=== PATIENT | female | born 1950 ===

== ENCOUNTER 2022-02-19 06:32 | Day surgery (SDC) | payer BC, SELFPAY ==
[2022-02-19] MEDS: Tropicam./Phenyleph. (1/2.5%) 5 ML BTL ×3 (06:52→07:07)
[2022-02-19 06:59] VITALS: BP 116/78; PULSE 56; RESP 16; TEMP 36.2; O2SAT 100
--- NOTE | 2022-02-19 07:10 | ANES.PREOP_ITS ---
General Info Date of Service Date Performed: 02/19/22 Height: 5 ft 2 in Weight: 52.4 kg Body Mass Index (BMI): 21.1 Surgical Procedure: Operation Date: 02/19/22 07:40 Proposed Procedure Side Surgeon p Cataract Extraction with IOL Implant Left Zachary Bynum MD Meds Allergies and Home Medications Allergies Allergy/AdvReac Type Severity Reaction Status Date / Time mold Allergy Unknown Verified 02/19/22 06:54 dexamethasone [From Maxitrol] AdvReac Severe Other (See Unverified 02/19/22 07:04 Comment) neomycin [From Maxitrol] AdvReac Severe Other (See Unverified 02/19/22 07:04 Comment) polymyxin B [From Maxitrol] AdvReac Severe Other (See Unverified 02/19/22 07:04 Comment) Home Medication Medication Instructions Recorded cholecalciferol (vitamin D3) 25 See Rx Instructions .Route .COMPLEX 02/16/22 mcg (1,000 unit) capsule (Vitamin D3) multivitamin 1 tab PO DAILY 02/16/22 [facility] Medical History Medical History Bone mass Cataract Tinnitus Unspecified dacryocystitis of bilateral lacrimal passages Surgical History Surgical History History of bunionectomy of both great toes History of colonoscopy History of hernia repair Tobacco Smoking/Tobacco Use Status: Never Alcohol Alcohol Intake: current Alcohol intake frequency: 3 or more drinks per day Alcohol type: wine Substance Use Substance use type: does not use Vital Signs and Lab Results Vital Signs Most Recent Vital Signs in EMR: Most Recent Vital Signs Temp Pulse Resp BP Pulse Ox 36.2 C L 56 L 16 116/78 100 02/19/22 06:59 02/19/22 06:59 02/19/22 06:59 02/19/22 06:59 02/19/22 06:59 Lab Results Blood Type / Crossmatch: No Data to Display Complete Blood Count: No Data to Display Complete Metabolic Panel: No Data to Display Liver Function Panel: No Data to Display Coagulation Panel: No Data to Display Cardiac Panel: No Data to Display Arterial Blood Gas: No Data to Display Venous Blood Gas: No Data to Display Pancreas Panel: No Data to Display Thyroid Panel: No Data to Display Infectious Disease: No Data to Display Blood Cultures: No Data to Display Toxicology Panel: No Data to Display Anesthesia Assessment and Plan Anesthesia History Personal History: No History of Anesthesia Complications Family History: No Family History of Anesthesia Complications Exercise Tolerance Exercise Tolerance: Metabolic Equivalents>4 Pertinent Negatives Pertinent Negatives: No Symptoms of GERD, No Major Cardiovascular Symptoms or Complaints, No Major Pulmonary Symptoms or Complaints and No History of CVA/TIA Cardiac & Pulmonary Exam Cardiac Exam: Normal S1/S2 Heart Sounds Pulmonary Exam: Clear Bilateral Breath Sounds Implantable Cardiac Device Does patient have a Pacemaker or an ICD?: No Airway Exam Known Difficult Airway: No Mallampati Class: 1 Mouth Opening: Normal (> 3cm) Thyromental Distance: Greater than 3 cm Neck Range of Motion: Full ROM Neck Circumference: Normal Teeth Condition: Normal Dentition ASA Classification ASA Score: ASA 2 Emergency Case?: No NPO Status NPO Status: NPO Clears >2 hours, Solids >8 hours Anesthesia Plan Resuscitation Status: Full Code Anesthesia Technique: MAC Anesthesia Airway Planned: Natural Airway Monitors Used: Standard Monitors
[2022-02-19 07:16] VITALS: BMI 21.1
[2022-02-19] MEDS: Povidone-Iodine Ophth 30 ML BTL (07:34)
[2022-02-19] MEDS: Lidocaine 2% Jelly 6 ML SYR (07:47)
[2022-02-19] MEDS: Balanced Salt Soln.-PLUS 500 ML BAG (07:47)
[2022-02-19] MEDS: Duovisc Viscoelastic System EACH 1 EACH (07:48)
[2022-02-19] MEDS: Tetracaine 0.5% 4 ML BTL (07:50)
--- NOTE | 2022-02-19 08:06 | W.PM.DSUDISC ---
Discharge Plan Disposition Patient Disposition: HOME Condition: Good Discharge Details Attending Provider: Zachary Bynum Primary Care Provider: Hollie Antonio Home Meds and New Rx's Prescriptions: No Action multivitamin Tablet 1 tab PO DAILY cholecalciferol (vitamin D3) [Vitamin D3] 25 mcg (1,000 unit) Capsule See Rx Instructions .ROUTE .COMPLEX Rx Instructions: 125 mcg orally Discharge Instructions Stand Alone Forms: Post-op Topical Cataract, Kristopher Jones (DSU) Discharge Orders Discharge Orders: Discharge Order (Routine); Ordered 02/19/22 Ordered By: Zachary Bynum DS: Diagnosis Discharge Diagnosis (1) Nuclear sclerotic cataract of left eye: Status: Resolved
--- NOTE | 2022-02-19 08:07 | W.PM.OP ---
Date of service: 02/19/22 Time of Service: 07:07 Operative Note Operative Note DATE OF PROCEDURE: 02/19/22 PRE-OP DIAGNOSIS: Nuclear cataract, left eye POST-OP DIAGNOSIS: same PROCEDURE: Cataract extraction using phacoemulsification with intraocular lens implant, left eye SURGEON: Zachary Bynum ANESTHESIA TYPE: Local By Surgeon and MAC Refer to Anesthesia Record PATHOLOGY: none sent COMPLICATIONS: None Patient was transported to: same day Patient's condition: stable Implants: Rene and Rene / [employer] Tecnis [id number] Indications: Progressive decreased vision due to cataract, left eye Procedure Description: CATARACT SURGERY OPERATIVE REPORT PREOPERATIVE DIAGNOSIS: 1. Nuclear cataract, left eye POSTOPERATIVE DIAGNOSIS: Same OPERATION: 1. Cataract extraction using phacoemulsification with posterior chamber intraocular lens implant, left eye. IOL: IOL Piped Pocket Machine Operator/Model: Rene & Rene / RUBEN Tecnis [id number] IOL Power: + 24.0 diopters IOL Serial Number: [id number] Optic Diameter: 6.0 mm Haptic/Overall Diameter: 13.0 mm PHACO INFO: Alessandro Meludiaurion Vision System with OZil and Active Fluidics Cumulative Dispersed Energy (CDE): 14.56 seconds SURGEON: Zachary Bynum MD, NASRIN ANESTHESIA: Monitored A [facility] (MAC), with local sub-tenon's anesthetic infiltration COMPLICATIONS: None SPECIMENS: None INDICATIONS FOR PROCEDURE: The patient is a 71-year-old lady with history of diminished visual acuity in both eyes secondary to the development of bilateral nuclear cataracts. She has experienced a myopic shift from her cataract and currently reads without glasses. Postoperatively she desires to continue to be able to read without glasses at a distance of approximately 40 cm. Postoperative refractive target is -2.50 diopters. The option of cataract surgery was offered to the patient and she felt she was symptomatic enough that she wished to proceed. PROCEDURE: The correct surgical eye was identified and marked as the left eye and the pupil was dilated in the preoperative area using mydriatics and cycloplegics. The dilated pupil size was 7.0 mm. She elected to proceed without oral sedation. The patient was brought to the operating room where cardiopulmonary monitoring was instituted and surgical time-out was performed, confirming the correct operative eye and IOL power. Topical anesthesia was administered and ophthalmic povidone-iodine 5% was instilled into the conjunctival fornices. Lidocaine gel was applied to the cornea and the brendan-ocular area was prepped with Betadine 10% solution and draped in the usual sterile fashion for intraocular surgery, including an aperture drape. A Tegaderm transparent film dressing was cut in half and used to cover the lashes and lid margins. Care was taken to sequester the lashes and lid margins under the Tegaderm dressing. A lid speculum was placed between the lids of the operative eye and the Alessandro LuxOR Revalia operating microscope was maneuvered into position. Fallon scissors were then used to make a conjunctival buttonhole approximately 6mm posterior to the limbus in the inferonasal quadrant. Blunt dissection was carried out to expose bare sclera, and a blunt-tipped sub-tenon?s anesthesia cannula was introduced and passed posteriorly along the globe where non-preserved plain lidocaine was injected into posterior sub-Tenon?s space. A sideport knife was used to make a paracentesis port superiorly/superiortemporally. Intraocular phenylephrine/lidocaine was injected int the anterior chamber.. The anterior chamber was filled with viscoelastic. A 2.4mm keratome knife was used to construct a 2-plane near-clear corneal tunnel extending 2.0mm into clear cornea temporally. A flap was raised on the anterior capsule and capsulorhexis forceps were used to complete a continuous curvilinear capsulorhexis of 5.5 mm. Balanced salt solution was then used to perform cortical cleaving hydrodissection and nuclear hydrodelineation until the lens could be freely rotated within the capsular bag. The lens nucleus was then disassembled and removed within the capsular bag and iris plane using phacoemulsification. Residual cortical material was removed using the 45-degree angled silicone I/A tip with 0.3mm port. The posterior capsule was carefully polished to remove as much residual lens epithelial cells as safely possible. The capsular bag was then inflated and the anterior chamber deepened with viscoelastic. The lens implant described above was inserted into the capsular bag using the RUBEN [place] Injector. A Kuglen hook was used to dial the IOL into position. Residual viscoelastic was then removed first from posterior to the IOL, then from the anterior chamber using the I/A handpiece. The lens implant was noted to center nicely within the capsular bag. The incisions were stromally hydrated, and the anterior chamber was reformed using BSS. Then 0.5cc of moxifloxacin 1.0mg/ml were injected into the capsular bag and anterior chamber. The incisions were checked with a Weck spear and found to be secure. Several drops of ophthalmic povidone-iodine 5% were then applied to the eye followed by two drops of Imprimis combination prednisolone/moxifloxacin/nepafenac solution. The drapes were removed and a clear plastic protective eye shield was placed over the eye. The patient was then returned to Same Day Surgery in stable condition.
[2022-02-19 08:19] VITALS: BP 115/76; PULSE 57; RESP 16; TEMP 36.4; O2SAT 98
--- NOTE | 2022-02-19 08:21 | W.ANESPOSTOP ---
Postoperative Evaluation Date, Time and Location Date Performed: 02/19/22 Time Performed: 08:18 Patient Location: Day Surgery Unit Vital Signs Most Recent Imported Vital Signs: Most Recent Vital Signs Temp Pulse Resp BP Pulse Ox 36.4 C L 57 L 16 115/76 98 02/19/22 08:19 02/19/22 08:19 02/19/22 08:19 02/19/22 08:19 02/19/22 08:19 Pain Score Most Recent Pain Score: Most Recent Pain Score Pain Level 0 02/19/22 08:19 Assessment Mental Status: Awake (Alert & Oriented to Patient Baseline) Airway and Respiratory Function: Patent airway with normal (patient baseline) respiratory exam Cardiovascular Function: Hemodynamically Stable Hydration Status: Adequately Hydrated Nausea & Vomiting: No Nausea or Vomiting Pain: Pt. Denies Any Pain Peripheral Nerve Block: Patient did not receive a nerve block
== END 2022-02-19 08:50 | disposition home or self-care (01) ==
PROVIDERS: PCP Internal Medicine; Visit Provider Ophthalmology
PROC: (CPT 66984; principal; 2022-02-19 07:30)
DX: H25.12 Age-related nuclear cataract, left eye (principal)
CPT/HCPCS: 66984; V2632

== ENCOUNTER 2022-03-05 06:32 | Day surgery (SDC) | payer BC, SELFPAY ==
[2022-03-05 06:39] VITALS: BP 121/74; PULSE 58; RESP 16; TEMP 35.8; O2SAT 100
[2022-03-05] MEDS: Tropicam./Phenyleph. (1/2.5%) 5 ML BTL OD ×3 (06:55→07:05)
--- NOTE | 2022-03-05 07:04 | W.ANESPRE ---
General Info Date of Service Date Performed: 03/05/22 Height: 5 ft 2 in Weight: 51.1 kg Body Mass Index (BMI): 20.6 Surgical Procedure: Operation Date: 03/05/22 07:40 Proposed Procedure Side Surgeon p Cataract Extraction with IOL Implant Right Zachary Bynum MD Meds Allergies and Home Medications Allergies Allergy/AdvReac Type Severity Reaction Status Date / Time mold Allergy Unknown Verified 03/05/22 06:38 dexamethasone [From Maxitrol] AdvReac Severe Other (See Verified 03/05/22 06:38 Comment) neomycin [From Maxitrol] AdvReac Severe Other (See Verified 03/05/22 06:38 Comment) polymyxin B [From Maxitrol] AdvReac Severe Other (See Verified 03/05/22 06:38 Comment) Home Medication Medication Instructions Recorded cholecalciferol (vitamin D3) 25 See Rx Instructions .Route .COMPLEX 02/16/22 mcg (1,000 unit) capsule (Vitamin D3) multivitamin 1 tab PO DAILY 02/16/22 Current Visit Medications: Current Medications Generic Name Dose Route Start Last Admin Trade Name Freq PRN Reason Stop Dose Admin Acetaminophen 1,000 mg 03/05/22 06:00 Acetaminophen 500 Mg Tab PO Q4H PRN PRN Miscellaneous Medication 0 ml 03/05/22 06:00 Prednisolone 1%, Moxifloxacin 0.5%, Nepafenac 0.1% 5ml Btl OD DIRECTED [facility] Miscellaneous Medication 0 ml 03/05/22 06:00 03/05/22 07:00 Tropicam./Phenyleph. (1/2.5%) 5 Ml Btl OD 1 drp DIRECTED KATIE Administration Tetracaine HCl 0 ml 03/05/22 06:00 Tetracaine 0.5% 4 Ml Btl OD DIRECTED KATIE PFSH Active Problems Active Problems: Problem Status Onset Code Nuclear sclerotic cataract of left eye H25.12 Medical History Medical History Bone mass Cataract Tinnitus Unspecified dacryocystitis of bilateral lacrimal passages Surgical History Surgical History History of bunionectomy of both great toes History of colonoscopy History of hernia repair Tobacco Smoking/Tobacco Use Status: Never Alcohol Alcohol Intake: current Alcohol intake frequency: 3 or more drinks per day Alcohol type: wine Substance Use Substance use type: does not use Vital Signs and Lab Results Vital Signs Most Recent Vital Signs in EMR: Most Recent Vital Signs Temp Pulse Resp BP Pulse Ox 35.8 C L 58 L 16 121/74 100 03/05/22 06:39 03/05/22 06:39 03/05/22 06:39 03/05/22 06:39 03/05/22 06:39 Lab Results Blood Type / Crossmatch: No Data to Display Complete Blood Count: No Data to Display Complete Metabolic Panel: No Data to Display Liver Function Panel: No Data to Display Coagulation Panel: No Data to Display Cardiac Panel: No Data to Display Arterial Blood Gas: No Data to Display Venous Blood Gas: No Data to Display Pancreas Panel: No Data to Display Thyroid Panel: No Data to Display Infectious Disease: No Data to Display Blood Cultures: No Data to Display Toxicology Panel: No Data to Display Anesthesia Assessment and Plan Anesthesia History Personal History: No History of Anesthesia Complications Family History: No Family History of Anesthesia Complications Exercise Tolerance Exercise Tolerance: Metabolic Equivalents>4 Cardiac & Pulmonary Exam Cardiac Exam: Normal S1/S2 Heart Sounds Pulmonary Exam: Clear Bilateral Breath Sounds Implantable Cardiac Device Does patient have a Pacemaker or an ICD?: No Airway Exam Known Difficult Airway: No Mallampati Class: 1 Mouth Opening: Normal (> 3cm) Thyromental Distance: Greater than 3 cm Neck Range of Motion: Full ROM Neck Circumference: Normal Teeth Condition: Normal Dentition ASA Classification ASA Score: ASA 2 Emergency Case?: No NPO Status NPO Status: NPO Clears >2 hours, Solids >8 hours Anesthesia Plan Resuscitation Status: Full Code Anesthesia Technique: MAC Anesthesia Airway Planned: Natural Airway Monitors Used: Standard Monitors
[2022-03-05 07:05] VITALS: BMI 20.6
[2022-03-05] MEDS: Lidocaine 2% Jelly 6 ML SYR (07:29)
[2022-03-05] MEDS: Tetracaine 0.5% 4 ML BTL OD (07:34)
[2022-03-05] MEDS: Balanced Salt Soln.-PLUS 500 ML BAG (07:39)
[2022-03-05] MEDS: Povidone-Iodine Ophth 30 ML BTL (07:39)
[2022-03-05] MEDS: Duovisc Viscoelastic System EACH 1 EACH (07:39)
--- NOTE | 2022-03-05 08:03 | W.PM.DSUDISC ---
Discharge Plan Disposition Patient Disposition: HOME Condition: Good Discharge Details Attending Provider: Zachary Bynum Primary Care Provider: Hollie Antonio Home Meds and New Rx's Prescriptions: No Action multivitamin Tablet 1 tab PO DAILY cholecalciferol (vitamin D3) [Vitamin D3] 25 mcg (1,000 unit) Capsule See Rx Instructions .ROUTE .COMPLEX Rx Instructions: 125 mcg orally Discharge Instructions Stand Alone Forms: Post-op Topical Cataract, Kristopher Jones (DSU) Discharge Orders Discharge Orders: Discharge Order (Routine); Ordered 03/05/22 Ordered By: Zachary Bynum DS: Diagnosis Discharge Diagnosis (1) Nuclear sclerotic cataract of right eye: Status: Resolved
--- NOTE | 2022-03-05 08:05 | W.PM.OP ---
Date of service: 03/05/22 Time of Service: 07:05 Operative Note Operative Note DATE OF PROCEDURE: 03/05/22 PRE-OP DIAGNOSIS: Nuclear cataract, right eye POST-OP DIAGNOSIS: same PROCEDURE: Cataract extraction using phacoemulsification with intraocular lens implant, right eye SURGEON: Zachary Bynum ANESTHESIA TYPE: Local By Surgeon and MAC Refer to Anesthesia Record ESTIMATED BLOOD LOSS: 0 PATHOLOGY: none sent COMPLICATIONS: None Patient was transported to: same day Patient's condition: stable Implants: Rene & Rene/RUBEN Tecnis [id number] Indications: Progressive visual loss due to cataract, right eye Procedure Description: CATARACT SURGERY OPERATIVE REPORT PREOPERATIVE DIAGNOSIS: 1. Nuclear cataract, right eye POSTOPERATIVE DIAGNOSIS: Same OPERATION: 1. Cataract extraction using phacoemulsification with posterior chamber intraocular lens implant, right eye. IOL: IOL Laundry Washer/Model: Rene & Rene / RUBEN Tecnis [id number] IOL Power: + 23.5 diopters IOL Serial Number: [id number] Optic Diameter: 6.0mm Haptic/Overall Diameter: 13.0mm PHACO INFO: AlessandroAirborne Technologyurion Vision System with OZil and Active Fluidics Cumulative Dispersed Energy (CDE): 12.49 seconds SURGEON: Zachary Bynum MD, NASRIN ANESTHESIA: Monitored [facility] (MAC), with local sub-tenon's anesthetic infiltration COMPLICATIONS: None SPECIMENS: None INDICATIONS FOR PROCEDURE: The patient is a 71-year-old lady with history of progressive decreased vision in both eyes secondary to the development of significant bilateral nuclear cataract. She feels her vision is significantly affected that she desired cataract surgery and attempt to improve and maximize her vision. She has already undergone cataract surgery in the left eye and is doing well postoperatively. She has a history of myopia and desires postoperative refractive target of approximately -2.50 diopters. The option of cataract surgery was offered to the patient and she wished to proceed. PROCEDURE: The correct surgical eye was identified and marked as the right eye and the pupil was dilated in the preoperative area using mydriatics and cycloplegics. The dilated pupil size was 7.0 mm. She elected to proceed without oral sedation. The patient was brought to the operating room where cardiopulmonary monitoring was instituted and surgical time-out was performed, confirming the correct operative eye and IOL power. Topical anesthesia was administered and ophthalmic povidone-iodine 5% was instilled into the conjunctival fornices. Lidocaine gel was applied to the cornea and the brendan-ocular area was prepped with Betadine 10% solution and draped in the usual sterile fashion for intraocular surgery, including an aperture drape. A Tegaderm transparent film dressing was cut in half and used to cover the lashes and lid margins. Care was taken to sequester the lashes and lid margins under the Tegaderm dressing. A lid speculum was placed between the lids of the operative eye and the Alessandro LuxOR Revalia operating microscope was maneuvered into position. Fallon scissors were then used to make a conjunctival buttonhole approximately 6mm posterior to the limbus in the inferonasal quadrant. Blunt dissection was carried out to expose bare sclera, and a blunt-tipped sub-tenon?s anesthesia cannula was introduced and passed posteriorly along the globe where non-preserved plain lidocaine was injected into posterior sub-Tenon?s space. A sideport knife was used to make a paracentesis port inferotemporally. Intraocular phenylephrine/lidocaine was injected into the anterior chamber. The anterior chamber was filled with viscoelastic. A 2.4mm keratome knife was used to construct a 2-plane near-clear corneal tunnel extending 2.0mm into clear cornea superiortemporally. A flap was raised on the anterior capsule and capsulorhexis forceps were used to complete a continuous curvilinear capsulorhexis of 5.0 mm. Balanced salt solution was then used to perform cortical cleaving hydrodissection and nuclear hydrodelineation until the lens could be freely rotated within the capsular bag. The lens nucleus was then disassembled and removed within the capsular bag and iris plane using phacoemulsification. Residual cortical material was removed using the I/A handpiece. The posterior capsule was carefully polished to remove as much residual lens epithelial cells as safely possible. The capsular bag was then inflated and the anterior chamber deepened with viscoelastic. The lens implant described above was inserted into the capsular bag using the RUBEN [place] Injector. A Kuglen hook was used to dial the IOL into position. Residual viscoelastic was then removed first from posterior to the IOL, then from the anterior chamber using the I/A handpiece. The lens implant was noted to center nicely within the capsular bag. The incisions were stromally hydrated, and the anterior chamber was reformed using BSS. Then 0.5cc of moxifloxacin 1.0mg/ml were injected into the capsular bag and anterior chamber. The incisions were checked with a Weck spear and found to be secure. Several drops of ophthalmic povidone-iodine 5% were then applied to the eye followed by two drops of Imprimis combination prednisolone/moxifloxacin/nepafenac solution. The drapes were removed and a clear plastic protective eye shield was placed over the eye. The patient was then returned to Same Day Surgery in stable condition.
[2022-03-05 08:09] VITALS: BP 100/79; PULSE 61; RESP 16; TEMP 36; O2SAT 99
--- NOTE | 2022-03-05 08:22 | W.ANESPOSTOP ---
Postoperative Evaluation Date, Time and Location Date Performed: 03/05/22 Time Performed: 08:05 Patient Location: Day Surgery Unit Vital Signs Most Recent Imported Vital Signs: Most Recent Vital Signs Temp Pulse Resp BP Pulse Ox 36.0 C L 61 16 100/79 99 03/05/22 08:09 03/05/22 08:09 03/05/22 08:09 03/05/22 08:09 03/05/22 08:09 Pain Score Most Recent Pain Score: Most Recent Pain Score Pain Level 0 03/05/22 08:09 Assessment Mental Status: Awake (Alert & Oriented to Patient Baseline) Airway and Respiratory Function: Patent airway with normal (patient baseline) respiratory exam Cardiovascular Function: Hemodynamically Stable Hydration Status: Adequately Hydrated Nausea & Vomiting: No Nausea or Vomiting Pain: Pt. Denies Any Pain Peripheral Nerve Block: Patient did not receive a nerve block
== END 2022-03-05 08:46 | disposition home or self-care (01) ==
PROVIDERS: PCP Internal Medicine; Visit Provider Ophthalmology
PROC: (CPT 66984; principal; 2022-03-05 07:30)
DX: H25.11 Age-related nuclear cataract, right eye (principal)
CPT/HCPCS: 66984; V2632